=== PATIENT | female | born 1955 | race Caucasian/White ===

== ENCOUNTER 2019-01-28 21:52 | Inpatient (IN) | payer MEDICARE, MEDICAID ==
[~2019-01-28] VITALS: Ht 144.8 cm; Wt 66.7 kg
[2019-01-29] VITALS (24 sets, daily range): BP systolic 81–114; BP diastolic 49–69
[2019-01-29] MEDS: K, MAG and/or Phos replacement - Verify level? MC SCH ×2 (01:20→08:00)
[2019-01-29] MEDS ORDERED: potassium Cl 20 mEq SR tablet PO PRN ×2 (01:20)
[2019-01-29] MEDS ORDERED: acetaminophen 325mg tablet PO PRN ×2 (01:20)
[2019-01-29] MEDS ORDERED: morphine 4 MG/ML inj SYRINge IV PRN (01:20)
[2019-01-29] MEDS ORDERED: FENTANYL-0.9 % NACL/PF 100 ML IV PRN (01:20)
[2019-01-29] MEDS ORDERED: potassium CL 10mEq/100ml bag 100 ML IV PRN (01:20)
[2019-01-29] MEDS ORDERED: ipratropium/albuterol 3ml nebule NEB PRN (01:20)
[2019-01-29] MEDS ORDERED: morphine 2 MG/ML inj. syringe IV PRN (01:20)
[2019-01-29] MEDS ORDERED: normal saline 1000ml 1,000 ML IV SCH (01:20)
[2019-01-29] MEDS ORDERED: ondansetron/PF 4mg/2ml inj IV PRN (01:20)
[2019-01-29 01:31] LABS: ABG BASE EXCESS 3.3 mmol/L (-2.0-3.0); ABG HCO3 27.4 mmol/L (22.0-26.0); ABG OXYGEN SATURATION 98.4 % (95-98); ABG PCO2 (T) 38.3 mmHg (32.0-45.0); ABG PH (T) 7.469 (7.350-7.450); ABG PO2 (T) 108.3 mmHg (83-108); FCOHb 1.4 % (0.5-1.5); FMetHb 0.3 % (0.3-1.12); FO2Hb 96.7 % (94-100); MINUTE VOLUME 8 L/min; PATIENT TEMPERATURE 36.1; PEEP 5 cm H2O; RESPIRATORY RATE 16 b/min; RESPIRATORY RATE (OBSERVED) 16 b/min; TIDAL VOLUME 450 mL; TOTAL HEMOGLOBIN 14.5 G/dl (12.0-16.0)
[2019-01-29] MEDS ORDERED: LEVO75TA PO (03:01)
[2019-01-29] MEDS ORDERED: FURO40TA4 PO (03:05)
[2019-01-29] MEDS ORDERED: SPIR25TA5 PO (03:07)
[2019-01-29] MEDS ORDERED: CARV6.253 PO (03:08)
[2019-01-29] MEDS ORDERED: RAMI5CAP65 PO (03:09)
[2019-01-29] MEDS ORDERED: ALEN70TA60 PO (03:09)
[2019-01-29] MEDS ORDERED: ALBU18HF2 INH (03:10)
[2019-01-29] MEDS ORDERED: glucagon, human recombinant 1mg kit SUBCUT PRN (03:45)
[2019-01-29] MEDS ORDERED: dextrose 50%-water 50ml dispensing syringe IV PRN (03:45)
[2019-01-29] MEDS ORDERED: dextrose ORAL solution 15 GM/59 ML bottle PO PRN ×2 (03:45)
[2019-01-29] MEDS ORDERED: dextrose 50%-water 50ml dispensing syringe IV ONE (03:49)
--- NOTE | 2019-01-29 03:55 | NUR ---
0032: PATIENT ARRIVED TO UNIT VIA GURNEY ON VENT AND SEDATED ON PROPOFOL. NEUROLOGICALLY SEDATED. NOTABLES DURING INITIAL ASSESSMENT . pUPILS WERE SLIGHTLY UNEVEN BUT REACTIVE BRISKLY. RIGHT PUPIL 4 MM & BRISK LEFT 3 MM & BRISK. EXTREMELY STRONG SMELL OF URINE AND FECES, LOOSE STOOL UNDER PATIENT - BRICK RED/BROWN. # 18 PIV TO LEFT THUMB IS NOT PATENT. # 18 PIV LEFT WRIST IN USE FOR DIPRIVAN. # 18 PIV RIGHT WRIST SALINE LOCKED. WRIST REDDEND BUT FLUSHES AND HAS BR. 7.5 ETT 22 CM AT LIP. CXR WAS COMPLETED. RIGHT NGT TO LWS - GREEN BILIOUS OUT - SMALL AMT. BRUISES AND REDNESS AT VARIOUS PARTS OF BODY - NO OPEN AREAS. COCCYX REDDENED. LARGE BRUISE TO LEFT THORAX. ABRASION TO UNDER LIP AND MIDDLE OF BACK. BP BORDERLINE - MONITORING. CESAR LIVINGSTON NOTIFIED AND ON UNIT. 04:04 : HYPOTENSIVE 78/57 - LEG LIFT ABOVE HEART INCREASES THE SBP TO 90. PER ORDER- 1 LITER FLUID BOLUS GIVEN. BLOOD GLUCOSE 48 RIGHT FINGERSTICK, RE-CHECK ON LEFT HAND AND BG WAS 56. CALL TO CESAR LIVINGSTON. SOLDERING MACHINE SETTER TO GET ORDER FOR DEXTROSE. 1/2 AMP DEXTROSE GIVEN PER ORDER. BG F/U IS PENDING. MEDS FOUND IN PATIENT BAG - MED REC COMPETED AND SENT TO PHARMACY. Addendum: 01/29/19 at 0422 by Jose Sullivan RN 2 ATTEMPTS WERE MADE AT ACCESS/PIV - BOTH WERE UNSUCCESSFUL. CESAR LIVINGSTON NP AWARE
[2019-01-29] MEDS: dextrose 50%-water 50ml dispensing syringe IV PRN (04:30)
--- NOTE | 2019-01-29 04:31 | NUR ---
F/U BG WAS 60. A SECOND 1/2 AMP D50% GIVEN
--- NOTE | 2019-01-29 05:13 | NUR ---
F/U GLUCOSE WAS 128
[2019-01-29 05:28] LABS: BASOPHILS % (AUTO) 0.1 % (0-1); EOSINOPHILS % (AUTO) 0 % (0-6); HEMATOCRIT 47.2 % (35.0-45.0); HEMOGLOBIN 14.6 g/dl (12.0-16.0); LYMPHOCYTES # (AUTO) 0.3 X10'3 (1.1-4.8); LYMPHOCYTES % (AUTO) 1.4 % (21-51); MEAN CORPUSCULAR HEMOGLOBIN 23.3 PG (27.0-31.0); MEAN CORPUSCULAR VOLUME 75.4 FL (78-98); MEAN PLATELET VOLUME 8.9 FL (7.4-10.4); MONOCYTES # (AUTO) 0.8 X10'3 (0-0.9); MONOCYTES % (AUTO) 3.2 % (2-12); NEUTROPHILS # (AUTO) 23.5 X10'3 (1.8-7.7); NEUTROPHILS % (AUTO) 95.3 % (42-75); PLATELET COUNT 138 X10'3 (140-440); RED BLOOD COUNT 6.27 X10'6 (4.20-5.60); RED CELL DISTRIBUTION WIDTH 18.3 % (11.5-14.5); WHITE BLOOD COUNT 24.7 X10'3 (4.5-11.0)
[2019-01-29 05:49] LABS: PARTIAL THROMBOPLASTIN TIME 38 SECONDS (22-32)
[2019-01-29] MEDS ORDERED: propofol 1000mg/100ml bottle 100 ML IV ONE (06:07)
[2019-01-29] MEDS: normal saline 1000ml 1,000 ML IV SCH ×3 (06:25→19:47)
--- NOTE | 2019-01-29 06:30 | NUR ---
Patient in room CICU 2008. I have received report from Jose MILLS and had the opportunity to ask questions and assume patient care. Patient laying in bed with eyes closed, on vent fio2 30% peep of 5, cabrera to gravity, vital signs stable will continue to monitor
--- NOTE | 2019-01-29 06:30 | NUR ---
Patient in room CICU 2008. I have received report from Jose MILLS and had the opportunity to ask questions and assume patient care. patient laying in bed with eyes closed, on ventilator
--- NOTE | 2019-01-29 06:30 | NUR ---
Patient in room CICU 2008. I have received report from Jose MILLS and had the opportunity to ask questions and assume patient care. Patient laying in bed with eyes closed, cabrera to gravity, on ventilator fio2 30%, vital signs stable will continue to monitor
[2019-01-29 06:41] LABS: ALANINE AMINOTRANSFERASE 730 U/L (12-78); ALBUMIN 2.2 G/DL (3.4-5.0); ALBUMIN/GLOBULIN RATIO 0.8 (1.1-1.5); ALKALINE PHOSPHATASE 109 IU/L (46-116); ANION GAP 14 (8-16); BILIRUBIN,TOTAL 2.1 MG/DL (0.1-1.0); BLOOD UREA NITROGEN 56 MG/DL (7-18); BUN/CREATININE RATIO 47.9 (6.6-38.0); CALCIUM 6.8 MG/DL (8.5-10.1); CHLORIDE 110 MMOL/L (99-107); CREATININE 1.17 MG/DL (0.40-0.90); GLUCOSE 138 MG/DL (70-104); PHOSPHORUS 2.8 MG/DL (2.3-4.5); SODIUM 149 MMOL/L (135-145); TOTAL CARBON DIOXIDE 25.1 MMOL/L (24-32); TOTAL PROTEIN 4.9 G/DL (6.4-8.2); eGFR 46 ML/MIN
[2019-01-29 06:42] LABS: ASPARTATE AMINO TRANSFERASE 1220 U/L (10-37); POTASSIUM 3.7 MMOL/L (3.5-5.1)
[2019-01-29 06:56] LABS: ANISOCYTOSIS 2+; MICROCYTOSIS 1+; PLATELET ESTIMATE DECREASED; TOTAL CELLS COUNTED 100
[2019-01-29] MEDS ORDERED: calcium chloride 100 MG/1 ML inj IV ONE (07:25)
--- NOTE | 2019-01-29 07:40 | NUR ---
Called patients daughter Tata Washington [phone] in regards to update her on her mothers status and to obtain consent for a PICC line placement, she agreed verified authorization with Nigel MILLS
--- NOTE | 2019-01-29 07:43 | NUR ---
Dr Frias called, reviewed labs and vital signs with him, new orders: amylase, lipase, place a PICC line informed him that there is no family to give consent, MRCP and MRI abdomen also ordered
[2019-01-29 08:31] LABS: AMYLASE 23 U/L (25-115); LIPASE 69 U/L (73-393)
--- NOTE | 2019-01-29 08:40 | NUR ---
when turning patient for wound care, there was another large tary stool under the patient, Dr. Hernandes aware
[2019-01-29] MEDS ORDERED: sincalide inj 1.3 MCG in normal saline 50ml IV soln 50 ML IV ONE (10:30)
--- NOTE | 2019-01-29 10:57 | NUR ---
Initial: Pt admit with sepsis, liver failure, cholangitis, and suspected GIB and is intubated. To get HIDA per MD at critical care rounds. If prolonged intubation recommend nutrition support to meet nutrient needs while on vent, recommendations below. Pt with low Franck of 12, per physical assessment pt with abrasion to lip and back. LBM 7/10. No edema. Will continue to follow. Recommendations: 1) If prolonged intubation and to receive TF, recommend continuous Vital High Protein with goal rate of 65 mL/hr to provide: 1680 mL total volume/day, 1680 kcal, 137 g protein, and 1304 mL free water 2) If TF, additional water flush per MD 3) If TF, prealbumin q /; daily wts 4) Diet advancement as medically indicated to heart healthy s/p extubation Addendum: 01/29/19 at [address] Amended: Links added.
[2019-01-29] MEDS: NORepinephrine 8mg/ 250ml NS 250 ML IV SCH (11:10)
[2019-01-29] MEDS ORDERED: LEVO175T2 PO (11:28)
[2019-01-29] MEDS ORDERED: ASPI-1265 PO (11:29)
[2019-01-29] MEDS ORDERED: ATOR-2 PO (11:29)
[2019-01-29] MEDS ORDERED: FLUT1BLS3 PO (11:30)
[2019-01-29] MEDS ORDERED: LISI-600 PO (11:32)
--- NOTE | 2019-01-29 11:44 | NUR ---
PRESSURE ULCER EDUCATION: DEFINITION: A pressure ulcer is an area of skin that breaks down when you stay in one position too long. The constant pressure against the skin reduces the blood flow to that area and the affected tissue dies. CAUSES: "Being bedridden or in a wheelchair "Fragile skin "Having a chronic condition, such as diabetes or vascular disease "Inability to move certain parts of your body without assistance "Older age "Incontinence of urine or stool SYMPTOMS: "A reddened area that DOES NOT turn white when pressed on - this can be the beginning of a pressure ulcer "A blister, deep sore or a crater - these can be advanced pressure ulcers FIRST AID: "Relieve the pressure on this area "Keep the area clean and dry "Call your primary doctor if you see any of the above symptoms "DO NOT massage the area "DO NOT use a donut shaped or ring shaped pillow- these actually interfere with the blood flow and cause complications PREVENTION: "Check for pressure ulcers everyday "Change position at least every two hours to relieve pressure "Use items that help relieve pressure- pillows, sheepskin, foam padding, and powders. "Keep skin clean and dry "Eat healthy well balanced meals "Exercise daily IF YOU SEE ANY OF THESE SYMPTOMS WHILE IN THE HOSPITAL - TELL YOUR NURSE IMMEDIATELY. IF YOU SEE ANY OF THESE SYMPTOMS WHILE AT HOME OR HAVE ANY QUESTIONS OR CONCERNS ABOUT PRESSURE ULCERS - CALL YOUR PRIMARY DOCTOR IMMEDIATELY. Addendum: 01/29/19 at 1145 by Stephany Calvo RN Amended: Links added.
[2019-01-29] MEDS: piperacillin/tazo 4.5gm/100ml 100 ML IV SCH ×2 (12:15→19:47)
[2019-01-29] MEDS: ESOMEPRAZOLE 40 MG VIAL IV SCH (12:16)
[2019-01-29 12:33] LABS: CREATINE KINASE 4876 U/L (26-192)
--- NOTE | 2019-01-29 13:14 | NUR ---
Wound consult: Per [facility] notes pt with SDTI/DTI to the following: R heel, knee, elbow, L heel, hip, elbow, knee, and sacrum. Pt intubated and not receiving nutrition support at this time. Will continue to follow. Addendum: 01/29/19 at [address] Amended: Links added.
[2019-01-29] MEDS ORDERED: sincalide inj 1.3 MCG in normal saline 50ml IV soln 50 ML IV PRN (13:15)
--- NOTE | 2019-01-29 15:45 | NUR ---
Gilson carrillo RT accompanied me to Nuc Med for billiary scan, patient tolerated trip down and back, once we arrived at nuc med I was called by my charge nurse and stated that the test had been canceled.
--- NOTE | 2019-01-29 18:35 | NUR ---
Patient in room CICU 2008. I have received report from Delmi MILLS, and had the opportunity to ask questions and assume patient care.
--- NOTE | 2019-01-29 18:37 | NUR ---
Problems reprioritized. Patient report given, questions answered & plan of care reviewed with Beal MILLS.
[2019-01-29 18:44] LABS: BILIRUBIN,DIRECT 1.3 MG/DL (0-0.3); BILIRUBIN,TOTAL 1.8 MG/DL (0.1-1.0)
[2019-01-29] MEDS ORDERED: diatr meglu/diatrizoate 30ml oral sol.-(3 dose) bottle PO ONE (20:25)
[2019-01-29] MEDS ORDERED: diatrozoate meglu/diatrozoate sod (37% iodine) 120ML oral solution PO SCH (20:25)
--- NOTE | 2019-01-29 20:30 | NUR ---
Dr. Mae came by to assess PT. He ordered an Echocardiogram for the AM. He also asked if a CT of ABD and chest had been ordered, I informed him that a CT of ABD and Pelvis was ordered, He wanted to add on a CT of the Chest. He also asked if the CT was ordered with contrast, I informed him that there was not contrast ordered so I received a verbal order from him for oral contrast as well as IV contrast if CRE decreased closer to 1.0, CRE is 1.7 as of AM labs. Orders placed. Will continue to monitor.
[2019-01-29 22:16] LABS: OXYGEN SATURATION (MIXED VEN) 74.4 % (60-80); PO2 MIXED VENOUS (TEMP COR) 42.3 mmHg (35-46)
[2019-01-29] MEDS ORDERED: diatr meglu/diatrizoate 30ml oral sol.-(3 dose) bottle PO PRN (22:30)
--- NOTE | 2019-01-29 23:00 | NUR ---
PT resting with no s/s of distress noted at this time. VSS. Bed is locked and low. Bilat soft wrist restraints in place and secure. Will continue to monitor.
[2019-01-30] VITALS (24 sets, daily range): BP systolic 99–142; BP diastolic 50–77
[2019-01-30] MEDS: mineral oil/petrolatum ophthal oint EACHEYE SCH ×4 (02:24→20:15)
[2019-01-30] MEDS: normal saline 1000ml 1,000 ML IV SCH (02:25)
[2019-01-30 03:30] LABS: BASOPHILS % (AUTO) 0.2 % (0-1); EOSINOPHILS % (AUTO) 0 % (0-6); HEMATOCRIT 43.3 % (35.0-45.0); HEMOGLOBIN 13.3 g/dl (12.0-16.0); LYMPHOCYTES # (AUTO) 0.3 X10'3 (1.1-4.8); LYMPHOCYTES % (AUTO) 2.1 % (21-51); MEAN CORPUSCULAR HGB CONC 30.7 g/dL (33.0-36.5); MEAN CORPUSCULAR VOLUME 74.9 FL (78-98); MONOCYTES # (AUTO) 0.6 X10'3 (0-0.9); MONOCYTES % (AUTO) 3.8 % (2-12); NEUTROPHILS # (AUTO) 15.5 X10'3 (1.8-7.7); NEUTROPHILS % (AUTO) 93.9 % (42-75); PLATELET COUNT 106 X10'3 (140-440); RED BLOOD COUNT 5.78 X10'6 (4.20-5.60); RED CELL DISTRIBUTION WIDTH 18.6 % (11.5-14.5); WHITE BLOOD COUNT 16.5 X10'3 (4.5-11.0)
[2019-01-30 03:41] LABS: ALANINE AMINOTRANSFERASE 646 U/L (12-78); ALBUMIN 1.9 G/DL (3.4-5.0); ALBUMIN/GLOBULIN RATIO 0.8 (1.1-1.5); ALKALINE PHOSPHATASE 101 IU/L (46-116); ANION GAP 5 (8-16); ASPARTATE AMINO TRANSFERASE 655 U/L (10-37); BILIRUBIN,TOTAL 1.8 MG/DL (0.1-1.0); BLOOD UREA NITROGEN 39 MG/DL (7-18); BUN/CREATININE RATIO 42.4 (6.6-38.0); CALCIUM 6.9 MG/DL (8.5-10.1); CHLORIDE 117 MMOL/L (99-107); CREATININE 0.92 MG/DL (0.40-0.90); GLUCOSE 94 MG/DL (70-104); MAGNESIUM 1.8 MG/DL (1.5-2.4); PHOSPHORUS 1.8 MG/DL (2.3-4.5); POTASSIUM 3.1 MMOL/L (3.5-5.1); SODIUM 152 MMOL/L (135-145); TOTAL CARBON DIOXIDE 30.2 MMOL/L (24-32); TOTAL PROTEIN 4.4 G/DL (6.4-8.2); eGFR 61 ML/MIN
--- NOTE | 2019-01-30 04:30 | NUR ---
RAJWINDER Genao notifed d/t NA being 152 and PT receiving NS@1590ml/hr. Order received to change IVF to D5 1/5NS and keep at same rate. Also informed of Phos of 1.8, no new orders received at this time. Will continue to monitor.
[2019-01-30] MEDS: potassium Cl 20mEq/100mL bag 100 ML IV PRN ×2 (04:53→07:23)
[2019-01-30] MEDS: dextrose 5%-1/2 normal saline 1,000 ML IV SCH ×3 (04:53→20:15)
[2019-01-30] MEDS ORDERED: diatr meglu/diatrizoate 30ml oral sol.-(3 dose) bottle PO ONE ×2 (06:00→07:00)
--- NOTE | 2019-01-30 06:47 | NUR ---
Problems reprioritized. Patient report given, questions answered & plan of care reviewed with Brando MILLS.
[2019-01-30] MEDS: K, MAG and/or Phos replacement - Verify level? MC SCH (08:00)
[2019-01-30 08:33] LABS: ABG BASE EXCESS -0.1 mmol/L (-2.0-3.0); ABG HCO3 23.9 mmol/L (22.0-26.0); ABG PH (T) 7.429 (7.350-7.450); ALLEN'S TEST Positive; FCOHb 1.7 % (0.5-1.5); FMetHb 0.3 % (0.3-1.12); FO2Hb 91.1 % (94-100); MINUTE VOLUME 7 L/min; PATIENT TEMPERATURE 37.1; PEEP 5 cm H2O; RESPIRATORY RATE 16 b/min; RESPIRATORY RATE (OBSERVED) 16 b/min; TIDAL VOLUME 400 mL
[2019-01-30] MEDS: ESOMEPRAZOLE 40 MG VIAL IV SCH (08:41)
[2019-01-30] MEDS: piperacillin/tazo 4.5gm/100ml 100 ML IV SCH ×2 (08:41→16:49)
--- NOTE | 2019-01-30 09:42 | NUR ---
Clarified CT orders with IV and oral Contrast with Dr Hernandes. CT paged
[2019-01-30] MEDS ORDERED: iohexol 300mg/ml 100ml inj. ONE (12:19)
[2019-01-30] MEDS: pantoprazole 40MG/NS 100ML BAG 100 ML IV SCH ×4 (13:28→23:11)
[2019-01-30 14:08] LABS: CREATINE KINASE 915 U/L (26-192)
[2019-01-30 14:49] LABS: OCCULT BLOOD STOOL POSITIVE (Neg)
--- NOTE | 2019-01-30 15:30 | NUR ---
Positive occult stool reported to Dr Hernandes; no new orders
--- NOTE | 2019-01-30 18:41 | NUR ---
Patient in room CICU 2008. I have received report from Brando MILLS, and had the opportunity to ask questions and assume patient care.
--- NOTE | 2019-01-30 19:35 | NUR ---
PT is intubated and mechanically vented, tolerating vent settings well, O2 sat >95%. VSS. Sedation is off, PT tolerating well. PT does respond to painful stimuli, facial grimace when repositioned. PT is not following commands but did open her eyes to sternal rub. Pupils are equal and reactive to light. Smalls in place draining to gravity. Rectal bag placed during previous shift, CDI, no stool noted in bag at this time. Bed is locked and low. Bilat soft wrist restraints in place and secure. Will continue to monitor.
[2019-01-30] MEDS: lactobacillus rhamnosus 10,000 MMU CELLS/CAPSULE PO SCH (20:00)
[2019-01-31] VITALS (24 sets, daily range): BP systolic 104–134; BP diastolic 58–77
[2019-01-31] MEDS: piperacillin/tazo 4.5gm/100ml 100 ML IV SCH ×4 (00:13→23:15)
[2019-01-31 02:35] LABS: BASOPHILS % (AUTO) 0.3 % (0-1); EOSINOPHILS % (AUTO) 0.2 % (0-6); HEMATOCRIT 39.3 % (35.0-45.0); HEMOGLOBIN 12.2 g/dl (12.0-16.0); LYMPHOCYTES # (AUTO) 0.4 X10'3 (1.1-4.8); LYMPHOCYTES % (AUTO) 3.2 % (21-51); MEAN CORPUSCULAR HEMOGLOBIN 23.1 PG (27.0-31.0); MEAN CORPUSCULAR VOLUME 74.6 FL (78-98); MEAN PLATELET VOLUME 8.6 FL (7.4-10.4); MONOCYTES # (AUTO) 0.5 X10'3 (0-0.9); MONOCYTES % (AUTO) 3.9 % (2-12); NEUTROPHILS # (AUTO) 11.8 X10'3 (1.8-7.7); NEUTROPHILS % (AUTO) 92.4 % (42-75); PLATELET COUNT 72 X10'3 (140-440); RED BLOOD COUNT 5.27 X10'6 (4.20-5.60); RED CELL DISTRIBUTION WIDTH 19.2 % (11.5-14.5); WHITE BLOOD COUNT 12.7 X10'3 (4.5-11.0)
[2019-01-31 02:52] LABS: ALANINE AMINOTRANSFERASE 539 U/L (12-78); ALBUMIN 1.7 G/DL (3.4-5.0); ALBUMIN/GLOBULIN RATIO 0.6 (1.1-1.5); ALKALINE PHOSPHATASE 91 IU/L (46-116); ANION GAP 4 (8-16); ASPARTATE AMINO TRANSFERASE 392 U/L (10-37); BILIRUBIN,TOTAL 1.1 MG/DL (0.1-1.0); BLOOD UREA NITROGEN 22 MG/DL (7-18); BUN/CREATININE RATIO 28.9 (6.6-38.0); CALCIUM 6.7 MG/DL (8.5-10.1); CHLORIDE 117 MMOL/L (99-107); CREATININE 0.76 MG/DL (0.40-0.90); GLUCOSE 149 MG/DL (70-104); MAGNESIUM 1.7 MG/DL (1.5-2.4); POTASSIUM 3.5 MMOL/L (3.5-5.1); SODIUM 150 MMOL/L (135-145); TOTAL CARBON DIOXIDE 29.2 MMOL/L (24-32); TOTAL PROTEIN 4.5 G/DL (6.4-8.2); eGFR 76 ML/MIN
[2019-01-31 02:53] LABS: PHOSPHORUS 1.1 MG/DL (2.3-4.5)
[2019-01-31] MEDS: mineral oil/petrolatum ophthal oint EACHEYE SCH ×4 (03:07→20:52)
[2019-01-31] MEDS: dextrose 5%-1/2 normal saline 1,000 ML IV SCH ×4 (03:07→23:14)
[2019-01-31 03:40] LABS: ABG BASE EXCESS 2.3 mmol/L (-2.0-3.0); ABG HCO3 27.7 mmol/L (22.0-26.0); ABG OXYGEN SATURATION 95.9 % (95-98); ABG PCO2 (T) 45.6 mmHg (32.0-45.0); ALLEN'S TEST Positive; FCOHb 1.4 % (0.5-1.5); FMetHb 0.1 % (0.3-1.12); FO2Hb 94.5 % (94-100); MINUTE VOLUME 7 L/min; PATIENT TEMPERATURE 36.7; PEEP 5 cm H2O; RESPIRATORY RATE 16 b/min; RESPIRATORY RATE (OBSERVED) 16 b/min; TIDAL VOLUME 400 mL; TOTAL HEMOGLOBIN 13.1 G/dl (12.0-16.0)
[2019-01-31] MEDS: pantoprazole 40MG/NS 100ML BAG 100 ML IV SCH ×4 (04:36→20:52)
--- NOTE | 2019-01-31 06:17 | NUR ---
Problems reprioritized. Patient report given, questions answered & plan of care reviewed with Brando MILLS.
[2019-01-31] MEDS: lactobacillus rhamnosus 10,000 MMU CELLS/CAPSULE PO SCH ×2 (07:12→20:00)
[2019-01-31] MEDS: K, MAG and/or Phos replacement - Verify level? MC SCH (08:00)
[2019-01-31] MEDS: NORepinephrine 8mg/ 250ml NS 250 ML IV SCH (11:10)
[2019-01-31] MEDS ORDERED: sodium phosphate inj. 30 MMOL in dextrose 5%-water 250 ML IV ONE (16:45)
[2019-01-31] MEDS ORDERED: LIDOcaine Viscous 15ml cup ONE (17:19)
[2019-01-31] MEDS ORDERED: MIDAZolam 5mg/5ml vial ONE (17:19)
[2019-01-31] MEDS ORDERED: fentaNYL/PF 50MCG/1 ML 2ML syringe ONE (17:19)
--- NOTE | 2019-01-31 18:30 | NUR ---
Patient in room CICU 2008. I have received report from Brando MILLS and had the opportunity to ask questions and assume patient care.
[2019-01-31] MEDS: vancomycin/NS 1 GM ADD-VANTAGE 250 ML IV SCH (23:15)
[2019-02-01] VITALS (24 sets, daily range): BP systolic 103–156; BP diastolic 65–82
[2019-02-01] MEDS: pantoprazole 40MG/NS 100ML BAG 100 ML IV SCH ×5 (02:12→19:21)
[2019-02-01] MEDS: mineral oil/petrolatum ophthal oint EACHEYE SCH ×4 (02:13→20:52)
[2019-02-01 03:13] LABS: BASOPHILS % (AUTO) 0.1 % (0-1); EOSINOPHILS # (AUTO) 0.1 X10'3 (0-0.9); EOSINOPHILS % (AUTO) 1.2 % (0-6); HEMATOCRIT 37.9 % (35.0-45.0); HEMOGLOBIN 11.7 g/dl (12.0-16.0); LYMPHOCYTES # (AUTO) 0.7 X10'3 (1.1-4.8); LYMPHOCYTES % (AUTO) 6.2 % (21-51); MEAN CORPUSCULAR HEMOGLOBIN 23.1 PG (27.0-31.0); MEAN CORPUSCULAR HGB CONC 30.8 g/dL (33.0-36.5); MEAN PLATELET VOLUME 8.6 FL (7.4-10.4); MONOCYTES # (AUTO) 0.6 X10'3 (0-0.9); MONOCYTES % (AUTO) 5.6 % (2-12); NEUTROPHILS % (AUTO) 86.9 % (42-75); PLATELET COUNT 55 X10'3 (140-440); RED BLOOD COUNT 5.05 X10'6 (4.20-5.60); RED CELL DISTRIBUTION WIDTH 19.2 % (11.5-14.5); WHITE BLOOD COUNT 11.5 X10'3 (4.5-11.0)
[2019-02-01 03:20] LABS: ALANINE AMINOTRANSFERASE 386 U/L (12-78); ALBUMIN 1.5 G/DL (3.4-5.0); ALBUMIN/GLOBULIN RATIO 0.5 (1.1-1.5); ALKALINE PHOSPHATASE 89 IU/L (46-116); ANION GAP 4 (8-16); ASPARTATE AMINO TRANSFERASE 233 U/L (10-37); BLOOD UREA NITROGEN 13 MG/DL (7-18); CALCIUM 6.5 MG/DL (8.5-10.1); CHLORIDE 114 MMOL/L (99-107); CREATININE 0.62 MG/DL (0.40-0.90); GLUCOSE 109 MG/DL (70-104); MAGNESIUM 1.5 MG/DL (1.5-2.4); PHOSPHORUS 2.3 MG/DL (2.3-4.5); SODIUM 147 MMOL/L (135-145); TOTAL PROTEIN 4.4 G/DL (6.4-8.2); eGFR > 90 ML/MIN
[2019-02-01 04:20] LABS: ABG BASE EXCESS 1.5 mmol/L (-2.0-3.0); ABG HCO3 26.3 mmol/L (22.0-26.0); ABG OXYGEN SATURATION 95.9 % (95-98); ABG PCO2 (T) 42.2 mmHg (32.0-45.0); ABG PH (T) 7.413 (7.350-7.450); ABG PO2 (T) 77.4 mmHg (83-108); ALLEN'S TEST Positive; FCOHb 1.7 % (0.5-1.5); FMetHb 0.1 % (0.3-1.12); FO2Hb 94.2 % (94-100); MINUTE VOLUME 7 L/min; PEEP 5 cm H2O; RESPIRATORY RATE 16 b/min; RESPIRATORY RATE (OBSERVED) 16 b/min; TIDAL VOLUME 400 mL
[2019-02-01] MEDS: potassium Cl 20mEq/100mL bag 100 ML IV PRN ×4 (04:30→08:06)
[2019-02-01] MEDS: K, MAG and/or Phos replacement - Verify level? MC SCH (06:48)
[2019-02-01] MEDS: piperacillin/tazo 4.5gm/100ml 100 ML IV SCH ×2 (08:04→16:32)
[2019-02-01] MEDS: lactobacillus rhamnosus 10,000 MMU CELLS/CAPSULE PO SCH ×2 (08:05→20:00)
[2019-02-01] MEDS: levoTHYROXINE 175mcg tablet PO SCH (08:06)
[2019-02-01] MEDS: atorvastatin 20mg tablet PO SCH (08:06)
[2019-02-01] MEDS: dextrose 50%-water 50ml dispensing syringe IV PRN ×3 (08:36→20:52)
[2019-02-01] MEDS: dextrose 5%-1/2 normal saline 1,000 ML IV SCH ×3 (09:45→16:25)
--- NOTE | 2019-02-01 10:54 | NUR ---
Reassessment: Pt remains intubated not receiving nutrition support at this time. Pt now day 3 with no nutrition although receiving some kcals via routine IV D5-1/2NS and PRN IV dextrose. Pt has been started on Vancomycin d/t sputum growing MRSA per MD notes. LBM 02/01. Will continue to follow. Reassessment: Pt still NPO, pending upper endoscopy today. Wound consult: Per [facility] notes pt with SDTI/DTI to the following: R heel, knee, elbow, L heel, hip, elbow, knee, and sacrum. Pt intubated and not receiving nutrition support at this time. Will continue to follow. Initial: Pt admit with sepsis, liver failure, cholangitis, and suspected GIB and is intubated. If prolonged intubation recommend nutrition support to meet nutrient needs while on vent, recommendations below. Pt with low Franck of 12, per physical assessment pt with abrasion to lip and back. LBM 01/29. No edema. Will continue to follow. Recommendations: 1) If prolonged intubation and to receive TF, recommend continuous Vital High Protein with goal rate of 65 mL/hr to provide: 1680 mL total volume/day, 1680 kcal, 137 g protein, and 1304 mL free water 2) If TF, additional water flush per MD 3) If TF, prealbumin q /; daily wts 4) Diet advancement as medically indicated to heart healthy s/p extubation Addendum: 02/01/19 at [address] Amended: Links added.
[2019-02-01 12:03] LABS: PHOSPHORUS 1.7 MG/DL (2.3-4.5); POTASSIUM 4.2 MMOL/L (3.5-5.1)
[2019-02-01] MEDS: vancomycin/NS 1 GM ADD-VANTAGE 250 ML IV SCH (12:49)
[2019-02-01] MEDS ORDERED: potassium phosphate inj 30 MMOL in normal saline 500ml IV soln 490 ML IV ONE (17:00)
[2019-02-01] MEDS: midazolam 100mg in NS 100ml 100 ML IV PRN (17:35)
[2019-02-02] VITALS (24 sets, daily range): BP systolic 114–162; BP diastolic 64–84
[2019-02-02] MEDS: piperacillin/tazo 4.5gm/100ml 100 ML IV SCH ×3 (00:26→15:46)
[2019-02-02] MEDS: pantoprazole 40MG/NS 100ML BAG 100 ML IV SCH ×5 (00:26→21:30)
[2019-02-02] MEDS: vancomycin/NS 1 GM ADD-VANTAGE 250 ML IV SCH ×2 (00:26→12:52)
[2019-02-02] MEDS: mineral oil/petrolatum ophthal oint EACHEYE SCH ×4 (02:00→20:22)
[2019-02-02 02:43] LABS: ALANINE AMINOTRANSFERASE 313 U/L (12-78); ALBUMIN 1.6 G/DL (3.4-5.0); ALBUMIN/GLOBULIN RATIO 0.5 (1.1-1.5); ALKALINE PHOSPHATASE 94 IU/L (46-116); ANION GAP 4 (8-16); ASPARTATE AMINO TRANSFERASE 160 U/L (10-37); BILIRUBIN,TOTAL 1.2 MG/DL (0.1-1.0); BLOOD UREA NITROGEN 8 MG/DL (7-18); BUN/CREATININE RATIO 13.8 (6.6-38.0); CALCIUM 6.9 MG/DL (8.5-10.1); CHLORIDE 114 MMOL/L (99-107); CREATININE 0.58 MG/DL (0.40-0.90); GLUCOSE 78 MG/DL (70-104); MAGNESIUM 1.3 MG/DL (1.5-2.4); PHOSPHORUS 2.7 MG/DL (2.3-4.5); POTASSIUM 3.9 MMOL/L (3.5-5.1); SODIUM 146 MMOL/L (135-145); TOTAL CARBON DIOXIDE 27.6 MMOL/L (24-32); TOTAL PROTEIN 4.6 G/DL (6.4-8.2); eGFR > 90 ML/MIN
[2019-02-02 02:44] LABS: BASOPHILS % (AUTO) 0 % (0-1); EOSINOPHILS # (AUTO) 0.1 X10'3 (0-0.9); EOSINOPHILS % (AUTO) 0.7 % (0-6); HEMATOCRIT 38.1 % (35.0-45.0); LYMPHOCYTES # (AUTO) 0.8 X10'3 (1.1-4.8); LYMPHOCYTES % (AUTO) 6.7 % (21-51); MEAN CORPUSCULAR HEMOGLOBIN 23.4 PG (27.0-31.0); MEAN CORPUSCULAR HGB CONC 31.7 g/dL (33.0-36.5); MEAN PLATELET VOLUME 8.6 FL (7.4-10.4); MONOCYTES # (AUTO) 0.7 X10'3 (0-0.9); MONOCYTES % (AUTO) 5.9 % (2-12); NEUTROPHILS # (AUTO) 10.5 X10'3 (1.8-7.7); NEUTROPHILS % (AUTO) 86.7 % (42-75); PLATELET COUNT 60 X10'3 (140-440); RED BLOOD COUNT 5.14 X10'6 (4.20-5.60); RED CELL DISTRIBUTION WIDTH 19.2 % (11.5-14.5); WHITE BLOOD COUNT 12.1 X10'3 (4.5-11.0)
[2019-02-02] MEDS: dextrose 5%-1/2 normal saline 1,000 ML IV SCH ×4 (03:27→20:24)
[2019-02-02] MEDS: dextrose 50%-water 50ml dispensing syringe IV PRN (03:27)
[2019-02-02 03:50] LABS: ABG BASE EXCESS 0.8 mmol/L (-2.0-3.0); ABG HCO3 25.7 mmol/L (22.0-26.0); ABG OXYGEN SATURATION 94.8 % (95-98); ABG PCO2 (T) 40.8 mmHg (32.0-45.0); ABG PH (T) 7.414 (7.350-7.450); ABG PO2 (T) 69.9 mmHg (83-108); ALLEN'S TEST Positive; FCOHb 1.6 % (0.5-1.5); FMetHb 0.2 % (0.3-1.12); FO2Hb 93.1 % (94-100); MINUTE VOLUME 7 L/min; PATIENT TEMPERATURE 36.2; PEEP 5 cm H2O; RESPIRATORY RATE 16 b/min; RESPIRATORY RATE (OBSERVED) 16 b/min; TIDAL VOLUME 400 mL; TOTAL HEMOGLOBIN 12.5 G/dl (12.0-16.0)
--- NOTE | 2019-02-02 06:30 | NUR ---
Problems reprioritized. Patient report given, questions answered & plan of care reviewed with
[2019-02-02 07:58] LABS: ANISOCYTOSIS 2+; HYPOCHROMASIA 1+; MICROCYTOSIS 1+; PLATELET ESTIMATE DECREASED; POLYCHROMASIA 1+; SCHISTOCYTES FEW
[2019-02-02] MEDS: levoTHYROXINE 175mcg tablet PO SCH (08:28)
[2019-02-02] MEDS: lactobacillus rhamnosus 10,000 MMU CELLS/CAPSULE PO SCH ×2 (08:28→20:22)
[2019-02-02] MEDS: atorvastatin 20mg tablet PO SCH (08:28)
[2019-02-02] MEDS: K, MAG and/or Phos replacement - Verify level? MC SCH (08:29)
[2019-02-02] MEDS ORDERED: magnesium 2GM in 50ml NS 50 ML IV ONE ×2 (08:30→15:45)
[2019-02-02] MEDS ORDERED: VANCOMYCIN LEVEL IV NR (11:30)
--- NOTE | 2019-02-02 12:39 | NUR ---
TF Consult: NGTF to start today per MD. EGD showed gastritis and pt not OK to extubated today; currently euvolemic though +3L yesterday per MD note. Recs below for intubation needs. Will monitor for TF tolerance and signs of refeeding given 4 days no nutrition. Reassessment: Pt remains intubated not receiving nutrition support at this time. Pt now day 3 with no nutrition although receiving some kcals via routine IV D5-1/2NS and PRN IV dextrose. Pt has been started on Vancomycin d/t sputum growing MRSA per MD notes. LBM 02/01. Will continue to follow. Recommendations: 1) NGTF using Vital High Protein at 65 mL/hr goal; to provide: 1680 mL total volume/day, 1680 kcal, 137 g protein, and 1304 mL free water 2) water flush 100ml Q6; adjust per machine chocolate molder recs 3) prealbumin q M/; daily wts 4) monitor for TF tolerance 5) Diet advancement as medically indicated to heart healthy s/p extubation Addendum: 02/02/19 at [address] Amended: Links added.
--- NOTE | 2019-02-02 12:56 | NUR ---
Pt. on spontaneous since this morning maintaining o2 sat and tidal volumes. RR high 20s. Per Dr. Palma continue on cpap, increase fio2 to 35% and start tube feedings. Vancomycin trough 15.7, per pharmacy this level is therapeutic and 12pm dose should be administered. Dose given
[2019-02-02] MEDS: midazolam 100mg in NS 100ml 100 ML IV PRN (15:11)
[2019-02-02] MEDS ORDERED: potassium Cl 20 mEq/100mL bag IV ONE (17:55)
--- NOTE | 2019-02-02 18:40 | NUR ---
Patient in room CICU 2008. I have received report from Sangita MILLS and had the opportunity to ask questions and assume patient care. Patient intubated and lightly sedated. Saturating at 97% on 35% FIO2 on CPAP mode, breathing at 17 breaths/min. Patient opens eyes to tactile stimuli, follows commands. HR in low 60s in sinus rhythm. Will continue to monitor patient closely.
[2019-02-03] VITALS (25 sets, daily range): BP systolic 103–164; BP diastolic 58–86
[2019-02-03] MEDS: piperacillin/tazo 4.5gm/100ml 100 ML IV SCH ×4 (00:47→23:41)
[2019-02-03] MEDS: vancomycin/NS 1 GM ADD-VANTAGE 250 ML IV SCH ×3 (00:47→23:41)
[2019-02-03] MEDS: pantoprazole 40MG/NS 100ML BAG 100 ML IV SCH ×3 (02:51→07:41)
[2019-02-03] MEDS: mineral oil/petrolatum ophthal oint EACHEYE SCH ×4 (02:53→21:13)
[2019-02-03 03:56] LABS: ABG BASE EXCESS -0.4 mmol/L (-2.0-3.0); ABG HCO3 26.7 mmol/L (22.0-26.0); ABG OXYGEN SATURATION 93.3 % (95-98); ABG PCO2 (T) 52.6 mmHg (32.0-45.0); ABG PH (T) 7.321 (7.350-7.450); ABG PO2 (T) 69.1 mmHg (83-108); ALLEN'S TEST Positive; FCOHb 1.9 % (0.5-1.5); FMetHb 0.2 % (0.3-1.12); FO2Hb 91.3 % (94-100); MINUTE VOLUME 5 L/min; PATIENT TEMPERATURE 36.5; PEEP 5 cm H2O; RESPIRATORY RATE (OBSERVED) 15 b/min; TOTAL HEMOGLOBIN 13.8 G/dl (12.0-16.0)
[2019-02-03 04:00] LABS: ALANINE AMINOTRANSFERASE 221 U/L (12-78); ALBUMIN 1.4 G/DL (3.4-5.0); ALBUMIN/GLOBULIN RATIO 0.5 (1.1-1.5); ALKALINE PHOSPHATASE 91 IU/L (46-116); ANION GAP 4 (8-16); ASPARTATE AMINO TRANSFERASE 90 U/L (10-37); BILIRUBIN,TOTAL 0.8 MG/DL (0.1-1.0); BLOOD UREA NITROGEN 5 MG/DL (7-18); BUN/CREATININE RATIO 10.4 (6.6-38.0); CALCIUM 7.4 MG/DL (8.5-10.1); CHLORIDE 110 MMOL/L (99-107); CREATININE 0.48 MG/DL (0.40-0.90); GLUCOSE 95 MG/DL (70-104); MAGNESIUM 1.5 MG/DL (1.5-2.4); PHOSPHORUS 2.3 MG/DL (2.3-4.5); POTASSIUM 3.4 MMOL/L (3.5-5.1); PREALBUMIN 7.5 MG/DL (19-36); SODIUM 142 MMOL/L (135-145); TOTAL CARBON DIOXIDE 28.2 MMOL/L (24-32); TOTAL PROTEIN 4.5 G/DL (6.4-8.2); eGFR > 90 ML/MIN
[2019-02-03] MEDS: dextrose 5%-1/2 normal saline 1,000 ML IV SCH ×4 (05:04→21:13)
[2019-02-03] MEDS: potassium CL 10mEq/100ml bag 100 ML IV PRN (05:58)
[2019-02-03 06:09] LABS: BASOPHILS % (AUTO) 0.2 % (0-1); EOSINOPHILS # (AUTO) 0.2 X10'3 (0-0.9); EOSINOPHILS % (AUTO) 1.6 % (0-6); HEMATOCRIT 40.7 % (35.0-45.0); HEMOGLOBIN 12.7 g/dl (12.0-16.0); LYMPHOCYTES # (AUTO) 0.8 X10'3 (1.1-4.8); LYMPHOCYTES % (AUTO) 6.9 % (21-51); MEAN CORPUSCULAR HEMOGLOBIN 23.2 PG (27.0-31.0); MEAN CORPUSCULAR HGB CONC 31.2 g/dL (33.0-36.5); MEAN CORPUSCULAR VOLUME 74.4 FL (78-98); MEAN PLATELET VOLUME 8.7 FL (7.4-10.4); MONOCYTES # (AUTO) 0.6 X10'3 (0-0.9); MONOCYTES % (AUTO) 5.6 % (2-12); NEUTROPHILS # (AUTO) 9.9 X10'3 (1.8-7.7); NEUTROPHILS % (AUTO) 85.7 % (42-75); PLATELET COUNT 66 X10'3 (140-440); RED BLOOD COUNT 5.48 X10'6 (4.20-5.60); RED CELL DISTRIBUTION WIDTH 19.8 % (11.5-14.5); WHITE BLOOD COUNT 11.6 X10'3 (4.5-11.0)
--- NOTE | 2019-02-03 06:24 | NUR ---
Problems reprioritized. Patient report given, questions answered & plan of care reviewed with Delmi MILLS.
--- NOTE | 2019-02-03 06:40 | NUR ---
During my physial assessment, found patient to have cold to the touch hands and feet, finger tips were blue as well, however toes were not, notified my Charge nurse Delmi who also came and assessed her, stated to place warm blankets on extremities also made charge nurse aware of mottling around thighs as well. Will continue to monitor
--- NOTE | 2019-02-03 06:53 | NUR ---
sedation off to see if patient is ready to extubate
--- NOTE | 2019-02-03 06:53 | NUR ---
Patient in room CICU 2008. I have received report from Idalia MILLS and had the opportunity to ask questions and assume patient care. Patient laying in bed with eyes closed on venitlator setting of cpap, peep of 5 pessure support of 15, cabrera to gravity, rectal tube to gravity. vital signs stable will continue to monitor
[2019-02-03 07:31] LABS: ANISOCYTOSIS 2+; MICROCYTOSIS 1+; PLATELET ESTIMATE DECREASED
[2019-02-03] MEDS: atorvastatin 20mg tablet PO SCH (07:41)
[2019-02-03] MEDS: lactobacillus rhamnosus 10,000 MMU CELLS/CAPSULE PO SCH (07:41)
[2019-02-03] MEDS: levoTHYROXINE 175mcg tablet PO SCH (07:41)
[2019-02-03] MEDS: K, MAG and/or Phos replacement - Verify level? MC SCH (07:42)
--- NOTE | 2019-02-03 09:39 | NUR ---
Unable to have a complete malnutrition risk screening due to the patient being intubated and sedated, answered questions best to my ability Addendum: 02/03/19 at 0939 by Delmi Murray RN Amended: Links added.
[2019-02-03] MEDS ORDERED: acetaminophen 325mg tablet NG PRN ×2 (11:37→11:40)
[2019-02-03] MEDS ORDERED: diatr meglu/diatrizoate 30ml oral sol.-(3 dose) bottle NG PRN (11:44)
[2019-02-03] MEDS ORDERED: dextrose ORAL solution 15 GM/59 ML bottle NG PRN ×2 (11:44)
[2019-02-03] MEDS: ESOMEPRAZOLE 40 MG VIAL IV SCH ×2 (11:56→21:12)
--- NOTE | 2019-02-03 13:00 | NUR ---
Rt Brady by to see if we can get some good weaning parameters, patient is unable to follow commands to take a deep breath and blow out to get the required weaning parameter values. Will try again later, informed Dr. Hernandes of the patients current ventilator weaning status. He stated to " keep working at it" no new orders.
--- NOTE | 2019-02-03 14:36 | NUR ---
Spoke to daughter Tata Kessler [phone] she is requesting and giving us consent to speak to Jagruti Wilhelm(sp) she is a flight nurse for [employer] and a good friend of the family in regards to her mother Ligia Maki. Tata feels that she will be better at asking the appropriate questions and being able to relay the information to her in a more understandable manner. Consent verified with LINA Lau
--- NOTE | 2019-02-03 15:11 | NUR ---
per Dr Hernandes D/Juana fentanyl and versed, no other new orders at this time
--- NOTE | 2019-02-03 15:40 | NUR ---
patient opens her eyes spontaneously, and tries to talk, I re-orient her that she is at the hospital and that we are working towards getting the "breathing tube" out. She nods her head that she agrees. She will squeeze my hand when asked to. She still however can not take the required deep breath and subsequent blowing out to get the required data for vent weaning parameters. She does wake up anxious but re-orients easily and will follow commands for slow deep breaths to help calm her down, and she will close her eyes and appear to sleep after some encouragement to settle down. Vital signs are stable will continue to monitor
--- NOTE | 2019-02-03 16:10 | NUR ---
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 According to the daughter Estefanía the patient was at a women's rehab in [facility], they dropped her off there on 01/20/19 to "get clean". They had not heard from their mom until the ER called them to inform them that she was in the hospital and " not doing well". Both daughters Estefanía and Tata have had an off and on again estranged relationship with their mother due to her drug use. The daughters have a better understanding of what is going on now with their mother as there was some confusion. 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 She also stated that she has been treated for hep C a few years back . She stated along with her bipolar diagnosis she is also schizophrenic and has a "dissociative personality disorder" the daughter did state that she was not sure if these diagnosis were due to her meth use or if the meth use was due to these diagnosis. The daughters are requesting some help with a PULST or advanced directive once their mother is in a clearer state of mind to make her wishes known should this happen again.
--- NOTE | 2019-02-03 18:20 | NUR ---
Problems reprioritized. Patient report given, questions answered & plan of care reviewed with Idalia MILLS.
--- NOTE | 2019-02-03 18:37 | NUR ---
[facility] I have received report from Delmi MILLS and had the opportunity to ask questions and assume patient care. Addendum: 02/03/19 at 1847 by Idalia Stovall RN Patient in bed, intubated and extremely restless and anxious. All sedation discontinued, no PRN anxiolytics available. Patient able to follow some commands, but then becomes too anxious/restless to follow commands. Breathing as fast as 50 breaths/min on spontaneous, occasionally desaturating to high 70s with extreme tachypnea. Will notify COINING PRESS OPERATOR if patient's anxiety not able to be resolved with non-pharmacologic measures.
[2019-02-03] MEDS: dexmedetomidin/NS 400mcg/100ml 100 ML IV SCH (19:27)
[2019-02-03] MEDS ORDERED: ESOMEPRAZOLE 40 MG VIAL IV SCH (20:00)
[2019-02-03] MEDS: lactobacillus rhamnosus 10,000 MMU CELLS/CAPSULE NG SCH (21:12)
[2019-02-04] VITALS (26 sets, daily range): BP systolic 113–160; BP diastolic 58–117
--- NOTE | 2019-02-04 00:23 | NUR ---
Patient wakes up constantly in very anxious state, breathes up to 40 breaths/min and desaturates to low 80s. Patient shakes head yes and no appropriately, follows commands, but immediately goes back into anxious and extremely restless state. Patient able to go back to sleep after being awake for a few minutes, respiratory rate drops to low 20s. Will continue to monitor patient anxiety and to titrate precedex PRN per eMAR order.
[2019-02-04] MEDS: dexmedetomidin/NS 400mcg/100ml 100 ML IV SCH ×2 (00:50→11:13)
[2019-02-04 02:42] LABS: BASOPHILS # (AUTO) 0.1 X10'3 (0-0.2); BASOPHILS % (AUTO) 0.5 % (0-1); EOSINOPHILS # (AUTO) 0.1 X10'3 (0-0.9); EOSINOPHILS % (AUTO) 0.6 % (0-6); HEMATOCRIT 38.6 % (35.0-45.0); LYMPHOCYTES # (AUTO) 0.5 X10'3 (1.1-4.8); LYMPHOCYTES % (AUTO) 4.7 % (21-51); MEAN CORPUSCULAR HEMOGLOBIN 23.2 PG (27.0-31.0); MEAN CORPUSCULAR HGB CONC 31.1 g/dL (33.0-36.5); MEAN CORPUSCULAR VOLUME 74.7 FL (78-98); MEAN PLATELET VOLUME 8.6 FL (7.4-10.4); MONOCYTES # (AUTO) 0.5 X10'3 (0-0.9); MONOCYTES % (AUTO) 4.6 % (2-12); NEUTROPHILS # (AUTO) 10.4 X10'3 (1.8-7.7); NEUTROPHILS % (AUTO) 89.6 % (42-75); PLATELET COUNT 67 X10'3 (140-440); RED BLOOD COUNT 5.17 X10'6 (4.20-5.60); RED CELL DISTRIBUTION WIDTH 19.5 % (11.5-14.5); WHITE BLOOD COUNT 11.6 X10'3 (4.5-11.0)
[2019-02-04 02:56] LABS: ABG HCO3 26.9 mmol/L (22.0-26.0); ABG OXYGEN SATURATION 95.6 % (95-98); ABG PCO2 (T) 47.8 mmHg (32.0-45.0); ABG PH (T) 7.368 (7.350-7.450); ABG PO2 (T) 76.5 mmHg (83-108); FCOHb 1.7 % (0.5-1.5); FMetHb 0.1 % (0.3-1.12); FO2Hb 93.9 % (94-100); MINUTE VOLUME 7 L/min; PEEP 5 cm H2O; RESPIRATORY RATE (OBSERVED) 20 b/min; TOTAL HEMOGLOBIN 13.1 G/dl (12.0-16.0)
[2019-02-04 02:57] LABS: ALANINE AMINOTRANSFERASE 184 U/L (12-78); ALBUMIN 1.4 G/DL (3.4-5.0); ALBUMIN/GLOBULIN RATIO 0.5 (1.1-1.5); ALKALINE PHOSPHATASE 99 IU/L (46-116); ANION GAP 2 (8-16); ASPARTATE AMINO TRANSFERASE 99 U/L (10-37); BILIRUBIN,TOTAL 0.6 MG/DL (0.1-1.0); BLOOD UREA NITROGEN 5 MG/DL (7-18); BUN/CREATININE RATIO 8.5 (6.6-38.0); CALCIUM 7.5 MG/DL (8.5-10.1); CHLORIDE 110 MMOL/L (99-107); CREATININE 0.59 MG/DL (0.40-0.90); GLUCOSE 144 MG/DL (70-104); MAGNESIUM 1.4 MG/DL (1.5-2.4); PHOSPHORUS 2.1 MG/DL (2.3-4.5); POTASSIUM 3.2 MMOL/L (3.5-5.1); SODIUM 142 MMOL/L (135-145); TOTAL CARBON DIOXIDE 30.2 MMOL/L (24-32); TOTAL PROTEIN 4.5 G/DL (6.4-8.2); eGFR > 90 ML/MIN
--- NOTE | 2019-02-04 04:01 | NUR ---
Precedex shut off for HR drop into 30s. Patient waking up restless, HR goes up to 70s when awake. Will continue to monitor patient anxiety and HR, will re-start/titrate precedex per eMAR orders.
--- NOTE | 2019-02-04 06:25 | NUR ---
Problems reprioritized. Patient report given, questions answered & plan of care reviewed with Delmi MILLS.
--- NOTE | 2019-02-04 06:30 | NUR ---
Patient in room CICU 2008. I have received report from Idalia MILLS and had the opportunity to ask questions and assume patient care. patient laying in bed with eyes closed, on ventilator setting of cpap, sating 96-98% fio2 30% peep of 5. Vital signs stable will continue to monitor
[2019-02-04] MEDS: K, MAG and/or Phos replacement - Verify level? MC SCH (08:00)
[2019-02-04] MEDS: levoTHYROXINE 175mcg tablet NG SCH (08:31)
[2019-02-04] MEDS: lactobacillus rhamnosus 10,000 MMU CELLS/CAPSULE NG SCH ×2 (08:31→21:56)
[2019-02-04] MEDS: atorvastatin 20mg tablet NG SCH (08:31)
[2019-02-04] MEDS: ESOMEPRAZOLE 40 MG VIAL IV SCH ×2 (08:31→21:56)
[2019-02-04] MEDS: dextrose 5%-1/2 normal saline 1,000 ML IV SCH (08:32)
[2019-02-04] MEDS: piperacillin/tazo 4.5gm/100ml 100 ML IV SCH ×2 (08:32→15:58)
[2019-02-04] MEDS: mineral oil/petrolatum ophthal oint EACHEYE SCH ×4 (08:32→21:56)
[2019-02-04] MEDS ORDERED: midazolam 2 mg/2 ml injection ONE (09:22)
[2019-02-04] MEDS ORDERED: fentaNYL/PF 50MCG/1 ML 2ML syringe ONE (09:22)
[2019-02-04] MEDS ORDERED: midazolam 2 mg/2 ml injection IV ONE (09:23)
[2019-02-04] MEDS ORDERED: fentaNYL/PF 50MCG/1 ML 2ML syringe IV ONE (09:23)
[2019-02-04] MEDS ORDERED: furosemide 40mg/4ml inj IV ONE (10:05)
[2019-02-04 10:54] LABS: BFSOURCE LEFT PLEURAL FLD; PLEURAL FLUID PH 7.352 (7.63-7.65)
--- NOTE | 2019-02-04 11:45 | NUR ---
Daughter Tata called to see how her mother is doing, she stated that patients sister and brother will be coming by osmany ( christiano and halle). She stated that her and her other sister will be in tomorrow to see the patient. All of the family is out of town, informed them of rounds that take place around 10am and that it would be a good time for the family to be here and participate in care decisions.
[2019-02-04] MEDS: vancomycin/NS 1 GM ADD-VANTAGE 250 ML IV SCH (12:40)
[2019-02-04] MEDS: potassium CL 10mEq/100ml bag 100 ML IV PRN ×3 (12:49→15:53)
--- NOTE | 2019-02-04 18:26 | NUR ---
Problems reprioritized. Patient report given, questions answered & plan of care reviewed with Idalia MILLS.
--- NOTE | 2019-02-04 18:29 | NUR ---
Patient in room CICU 2008. I have received report from Delmi MILLS and had the opportunity to ask questions and assume patient care. Patient intubated, intermittently restless/anxious and sedated on .8mcg/kg/min precedex. HR in low 60s in sinus rhythm. Patient saturating at 95% on 30% FIO2 on cpap mode, breathing at 25 breaths/min. Will continue to monitor patient closely and to assess patient anxiety.
[2019-02-04] MEDS: furosemide 40mg/4ml inj IV SCH (21:56)
--- NOTE | 2019-02-04 23:20 | NUR ---
Patient woke up for linen change, cooperative and not as anxious as last night. Able to communicate needs by shaking and nodding head. Also shaking/nodding head appropriately to questions, following commands. Will continue to monitor patient and to titrate precedex as needed.
[2019-02-05] VITALS (23 sets, daily range): BP systolic 98–176; BP diastolic 50–77
[2019-02-05] MEDS: piperacillin/tazo 4.5gm/100ml 100 ML IV SCH ×4 (00:26→23:36)
[2019-02-05] MEDS: vancomycin/NS 1 GM ADD-VANTAGE 250 ML IV SCH ×3 (00:26→23:36)
[2019-02-05] MEDS: mineral oil/petrolatum ophthal oint EACHEYE SCH ×5 (02:03→23:36)
[2019-02-05 02:47] LABS: BASOPHILS % (AUTO) 0.2 % (0-1); EOSINOPHILS # (AUTO) 0.1 X10'3 (0-0.9); EOSINOPHILS % (AUTO) 0.9 % (0-6); HEMATOCRIT 38.8 % (35.0-45.0); HEMOGLOBIN 12.2 g/dl (12.0-16.0); LYMPHOCYTES # (AUTO) 0.7 X10'3 (1.1-4.8); LYMPHOCYTES % (AUTO) 5.8 % (21-51); MEAN CORPUSCULAR HEMOGLOBIN 22.9 PG (27.0-31.0); MEAN CORPUSCULAR HGB CONC 31.4 g/dL (33.0-36.5); MEAN CORPUSCULAR VOLUME 72.8 FL (78-98); MEAN PLATELET VOLUME 8.8 FL (7.4-10.4); MONOCYTES # (AUTO) 0.6 X10'3 (0-0.9); MONOCYTES % (AUTO) 5.1 % (2-12); PLATELET COUNT 91 X10'3 (140-440); RED BLOOD COUNT 5.33 X10'6 (4.20-5.60); RED CELL DISTRIBUTION WIDTH 19.5 % (11.5-14.5); WHITE BLOOD COUNT 12.5 X10'3 (4.5-11.0)
[2019-02-05 02:57] LABS: ALANINE AMINOTRANSFERASE 158 U/L (12-78); ALBUMIN 1.5 G/DL (3.4-5.0); ALBUMIN/GLOBULIN RATIO 0.4 (1.1-1.5); ALKALINE PHOSPHATASE 92 IU/L (46-116); ANION GAP 3 (8-16); ASPARTATE AMINO TRANSFERASE 83 U/L (10-37); BILIRUBIN,TOTAL 0.7 MG/DL (0.1-1.0); BLOOD UREA NITROGEN 8 MG/DL (7-18); BUN/CREATININE RATIO 12.7 (6.6-38.0); CALCIUM 7.7 MG/DL (8.5-10.1); CHLORIDE 105 MMOL/L (99-107); CREATININE 0.63 MG/DL (0.40-0.90); GLUCOSE 112 MG/DL (70-104); MAGNESIUM 1.2 MG/DL (1.5-2.4); PHOSPHORUS 2.4 MG/DL (2.3-4.5); SODIUM 144 MMOL/L (135-145); eGFR > 90 ML/MIN
[2019-02-05 02:59] LABS: POTASSIUM 2.9 MMOL/L (3.5-5.1)
[2019-02-05] MEDS: POTASSIUM BICARB 20meq eff tab 20 MEQ TABLET.EFF NG PRN ×5 (03:19→23:34)
[2019-02-05 03:20] LABS: ABG BASE EXCESS 11.1 mmol/L (-2.0-3.0); ABG HCO3 35.9 mmol/L (22.0-26.0); ABG OXYGEN SATURATION 90.8 % (95-98); ABG PCO2 (T) 47.6 mmHg (32.0-45.0); ABG PH (T) 7.495 (7.350-7.450); ABG PO2 (T) 55.3 mmHg (83-108); FCOHb 1.3 % (0.5-1.5); FMetHb 0.2 % (0.3-1.12); FO2Hb 89.4 % (94-100); MINUTE VOLUME 8 L/min; PEEP 5 cm H2O; RESPIRATORY RATE (OBSERVED) 22 b/min; TOTAL HEMOGLOBIN 13.5 G/dl (12.0-16.0)
[2019-02-05] MEDS: dexmedetomidin/NS 400mcg/100ml 100 ML IV SCH ×2 (03:20→22:46)
[2019-02-05 03:31] LABS: ANISOCYTOSIS 2+; HYPOCHROMASIA 1+; MICROCYTOSIS 1+; PLATELET ESTIMATE DECREASED; TOTAL CELLS COUNTED 100
[2019-02-05] MEDS ORDERED: magnesium 2GM in 50ml NS 50 ML IV PRN (04:30)
--- NOTE | 2019-02-05 06:14 | NUR ---
Problems reprioritized. Patient report given, questions answered & plan of care reviewed with Jaylen MILLS.
[2019-02-05] MEDS: K, MAG and/or Phos replacement - Verify level? MC SCH (08:00)
[2019-02-05] MEDS: furosemide 40mg/4ml inj IV SCH ×2 (08:37→19:46)
[2019-02-05] MEDS: levoTHYROXINE 175mcg tablet NG SCH (08:37)
[2019-02-05] MEDS: atorvastatin 20mg tablet NG SCH (08:37)
[2019-02-05] MEDS: lactobacillus rhamnosus 10,000 MMU CELLS/CAPSULE NG SCH ×2 (08:37→19:46)
[2019-02-05] MEDS: ESOMEPRAZOLE 40 MG VIAL IV SCH ×2 (08:37→19:46)
[2019-02-05 16:21] LABS: MAGNESIUM 1.6 MG/DL (1.5-2.4); POTASSIUM 3.1 MMOL/L (3.5-5.1)
--- NOTE | 2019-02-05 18:20 | NUR ---
Patient in room CICU 2008. I have received report from LINA York and had the opportunity to ask questions and assume patient care. Patient is awake and alert x2. Patient with Oxygen Saturation 95% with respiratory rate 24. Patient head movement with inhalation. Patient feels like she is "breathing okay". Oxygen via nasal cannula at 3 lpm. Normal sinus on the monitor. Patient with cabrera catheter in place. Will continue to monitor.
[2019-02-06] VITALS (24 sets, daily range): BP systolic 132–179; BP diastolic 63–83
--- NOTE | 2019-02-06 00:39 | NUR ---
Patient c/o generalized pain. Patient is unable to state where she is having pain relates she is "Just uncomfortable". phone call to July RAJWINDER Ponce re pain. She will place orders.
[2019-02-06] MEDS ORDERED: HYDROcodone/acetaminophen 10/325mg tab PO PRN (00:40)
[2019-02-06] MEDS ORDERED: HYDROcodone/acetaminophen 5mg/325mg tablet PO PRN (00:40)
--- NOTE | 2019-02-06 01:14 | NUR ---
offered patient [place] for pain as ordered. Patient now states "I am not in pain, I'm anxious!". Patient repositioned and IV turned on for distraction. Oxygen saturation 94% respiratory rate 24. will continue to monitor.
--- NOTE | 2019-02-06 01:20 | NUR ---
Phone call to Jessy Ponce NP re: anxiety and agitation. Patient with decreasing Oxygen Saturation to 92% with agitation. BP 159/81. HR 83, RR 24 currently on 4 lpm oxygen via nasal cannula. Discussed BiPap mask with patient. Patient feels that she would not be able to keep a mask on her face at this time due to her anxiety. Hortencia Ponce OUTCOMES ANALYST to place order for Ativan. RT paged for BiPap to bedside.
[2019-02-06] MEDS ORDERED: LORazepam 2 mg/ml vial IV ONE (01:30)
[2019-02-06] MEDS: POTASSIUM BICARB 20meq eff tab 20 MEQ TABLET.EFF NG PRN ×2 (04:49→09:03)
[2019-02-06 05:30] LABS: BASOPHILS % (AUTO) 0.2 % (0-1); EOSINOPHILS % (AUTO) 0.2 % (0-6); HEMOGLOBIN 12.2 g/dl (12.0-16.0); LYMPHOCYTES # (AUTO) 0.9 X10'3 (1.1-4.8); MEAN CORPUSCULAR HEMOGLOBIN 23.3 PG (27.0-31.0); MEAN CORPUSCULAR HGB CONC 32.1 g/dL (33.0-36.5); MEAN CORPUSCULAR VOLUME 72.6 FL (78-98); MEAN PLATELET VOLUME 8.8 FL (7.4-10.4); MONOCYTES # (AUTO) 0.8 X10'3 (0-0.9); MONOCYTES % (AUTO) 5.5 % (2-12); NEUTROPHILS # (AUTO) 12.7 X10'3 (1.8-7.7); NEUTROPHILS % (AUTO) 88.1 % (42-75); PLATELET COUNT 139 X10'3 (140-440); RED BLOOD COUNT 5.23 X10'6 (4.20-5.60); RED CELL DISTRIBUTION WIDTH 19.7 % (11.5-14.5); WHITE BLOOD COUNT 14.4 X10'3 (4.5-11.0)
[2019-02-06 05:47] LABS: ALANINE AMINOTRANSFERASE 283 U/L (12-78); ALBUMIN 1.9 G/DL (3.4-5.0); ALBUMIN/GLOBULIN RATIO 0.5 (1.1-1.5); ALKALINE PHOSPHATASE 148 IU/L (46-116); ANION GAP 2 (8-16); ASPARTATE AMINO TRANSFERASE 249 U/L (10-37); BILIRUBIN,TOTAL 1.1 MG/DL (0.1-1.0); BLOOD UREA NITROGEN 7 MG/DL (7-18); BUN/CREATININE RATIO 12.7 (6.6-38.0); CALCIUM 8.1 MG/DL (8.5-10.1); CHLORIDE 101 MMOL/L (99-107); CREATININE 0.55 MG/DL (0.40-0.90); GLUCOSE 75 MG/DL (70-104); MAGNESIUM 1.5 MG/DL (1.5-2.4); PHOSPHORUS 2.7 MG/DL (2.3-4.5); POTASSIUM 3.2 MMOL/L (3.5-5.1); PREALBUMIN 12.8 MG/DL (19-36); SODIUM 142 MMOL/L (135-145); TOTAL CARBON DIOXIDE 39.5 MMOL/L (24-32); TOTAL PROTEIN 5.8 G/DL (6.4-8.2); eGFR > 90 ML/MIN
--- NOTE | 2019-02-06 06:20 | NUR ---
Problems reprioritized. Patient report given, questions answered & plan of care reviewed with LINA Lozano.
--- NOTE | 2019-02-06 06:30 | NUR ---
Patient in room CICU 2008. I have received report from KADEEM MILLS and had the opportunity to ask questions and assume patient care.
[2019-02-06 06:59] LABS: ANISOCYTOSIS 2+; GIANT PLATELET FEW; LARGE PLATELETS FEW; MICROCYTOSIS 1+; PLATELET ESTIMATE DECREASED
[2019-02-06 07:00] LABS: SCHISTOCYTES FEW; STOMATOCYTES 1+
[2019-02-06] MEDS: K, MAG and/or Phos replacement - Verify level? MC SCH (08:00)
[2019-02-06] MEDS: furosemide 40mg/4ml inj IV SCH (08:00)
[2019-02-06] MEDS: mineral oil/petrolatum ophthal oint EACHEYE SCH ×3 (08:00→16:10)
[2019-02-06] MEDS ORDERED: potassium Cl 20 mEq SR tablet PO PRN (08:05)
[2019-02-06] MEDS: atorvastatin 20mg tablet NG SCH (09:02)
[2019-02-06] MEDS: levoTHYROXINE 175mcg tablet NG SCH (09:02)
[2019-02-06] MEDS: lactobacillus rhamnosus 10,000 MMU CELLS/CAPSULE NG SCH ×2 (09:02→19:37)
[2019-02-06] MEDS: lisinopril 20mg tablet PO SCH (09:02)
[2019-02-06] MEDS: carvedilol 6.25mg tablet PO SCH (09:02)
[2019-02-06] MEDS: ESOMEPRAZOLE 40 MG VIAL IV SCH ×2 (09:03→19:37)
[2019-02-06] MEDS: piperacillin/tazo 4.5gm/100ml 100 ML IV SCH (09:04)
[2019-02-06] MEDS: vancomycin/NS 1 GM ADD-VANTAGE 250 ML IV SCH (11:31)
--- NOTE | 2019-02-06 11:58 | NUR ---
transfer orders received on this patient , waiting on bed available in pCU
--- NOTE | 2019-02-06 15:42 | NUR ---
Reassessment: Patient extubated yesterday, diet advanced to pureed, thin liquids. PO Intake 25% so far, poor appetite is likely d/t recent intubation. Pt is s/p thoracentesis with 1.2 liters out. Per [facility] notes pt with SDTI/DTI to the following: R heel, knee, elbow, L heel, hip, elbow, knee, and sacrum. Pt admit with sepsis, acute respiratory failure-now extubated, COPD, GIB. Will continue to follow and monitor PO intake, diet texture and monitor need for ONS if PO intake remains poor. Recommendations: 1) Continue pureed diet 2) Monitor need for ONS 3) Weight per rx 4) Consider BSS for advancement of diet texture as indicated Addendum: 02/06/19 at [address] Amended: Links added.
[2019-02-07] VITALS (18 sets, daily range): BP systolic 113–175; BP diastolic 61–94
[2019-02-07] MEDS: mineral oil/petrolatum ophthal oint EACHEYE SCH ×4 (00:19→19:27)
[2019-02-07] MEDS: vancomycin/NS 1 GM ADD-VANTAGE 250 ML IV SCH ×2 (00:19→11:46)
[2019-02-07 02:20] LABS: BASOPHILS # (AUTO) 0.1 X10'3 (0-0.2); BASOPHILS % (AUTO) 0.5 % (0-1); EOSINOPHILS # (AUTO) 0.1 X10'3 (0-0.9); EOSINOPHILS % (AUTO) 1.1 % (0-6); HEMATOCRIT 36.1 % (35.0-45.0); HEMOGLOBIN 11.6 g/dl (12.0-16.0); LYMPHOCYTES % (AUTO) 10.3 % (21-51); MEAN CORPUSCULAR HEMOGLOBIN 23.2 PG (27.0-31.0); MEAN CORPUSCULAR HGB CONC 32.1 g/dL (33.0-36.5); MEAN CORPUSCULAR VOLUME 72.3 FL (78-98); MEAN PLATELET VOLUME 8.8 FL (7.4-10.4); MONOCYTES # (AUTO) 0.7 X10'3 (0-0.9); MONOCYTES % (AUTO) 6.9 % (2-12); NEUTROPHILS % (AUTO) 81.2 % (42-75); PLATELET COUNT 157 X10'3 (140-440); RED BLOOD COUNT 4.99 X10'6 (4.20-5.60); RED CELL DISTRIBUTION WIDTH 19.4 % (11.5-14.5); WHITE BLOOD COUNT 9.9 X10'3 (4.5-11.0)
[2019-02-07 02:33] LABS: ALANINE AMINOTRANSFERASE 250 U/L (12-78); ALBUMIN 1.8 G/DL (3.4-5.0); ALBUMIN/GLOBULIN RATIO 0.5 (1.1-1.5); ALKALINE PHOSPHATASE 142 IU/L (46-116); ANION GAP -2 (8-16); ASPARTATE AMINO TRANSFERASE 206 U/L (10-37); BILIRUBIN,TOTAL 0.9 MG/DL (0.1-1.0); BLOOD UREA NITROGEN 7 MG/DL (7-18); BUN/CREATININE RATIO 15.2 (6.6-38.0); CALCIUM 8.4 MG/DL (8.5-10.1); CHLORIDE 104 MMOL/L (99-107); CREATININE 0.46 MG/DL (0.40-0.90); GLUCOSE 73 MG/DL (70-104); MAGNESIUM 1.6 MG/DL (1.5-2.4); PHOSPHORUS 3.2 MG/DL (2.3-4.5); POTASSIUM 3.5 MMOL/L (3.5-5.1); SODIUM 143 MMOL/L (135-145); TOTAL PROTEIN 5.3 G/DL (6.4-8.2); eGFR > 90 ML/MIN
[2019-02-07 02:42] LABS: TOTAL CARBON DIOXIDE 40.9 MMOL/L (24-32)
[2019-02-07 03:11] LABS: MICROCYTOSIS 2+; PLATELET ESTIMATE NORMAL
[2019-02-07 03:12] LABS: ANISOCYTOSIS 2+
[2019-02-07 07:03] LABS: MAGNESIUM 1.7 MG/DL (1.5-2.4); POTASSIUM 3.6 MMOL/L (3.5-5.1)
[2019-02-07] MEDS: lactobacillus rhamnosus 10,000 MMU CELLS/CAPSULE NG SCH ×2 (07:11→20:00)
[2019-02-07] MEDS: atorvastatin 20mg tablet NG SCH (07:11)
[2019-02-07] MEDS: levoTHYROXINE 175mcg tablet NG SCH (07:11)
[2019-02-07] MEDS: ESOMEPRAZOLE 40 MG VIAL IV SCH ×2 (07:11→20:00)
[2019-02-07] MEDS: lisinopril 20mg tablet PO SCH (07:12)
[2019-02-07] MEDS: furosemide 40mg tablet PO SCH (07:12)
[2019-02-07] MEDS: K, MAG and/or Phos replacement - Verify level? MC SCH (07:36)
[2019-02-07] MEDS: carvedilol 6.25mg tablet PO SCH (08:48)
--- NOTE | 2019-02-07 08:56 | NUR ---
Call received from ultrasound. Patient had breakfast this AM, will keep NPO until abdominal US is done this afternoon.
--- NOTE | 2019-02-07 15:24 | NUR ---
Report given to LINA Chaves. All questions answered. Patient transported to Room 3021 via wheelchair accompanied by nurse.
--- NOTE | 2019-02-07 18:20 | NUR ---
Patient in room PCU 3021. I have received report from Anastacio MILLS and had the opportunity to ask questions and assume patient care.
[2019-02-08] MEDS: vancomycin/NS 1 GM ADD-VANTAGE 250 ML IV SCH ×2 (00:27→12:17)
[2019-02-08] MEDS: mineral oil/petrolatum ophthal oint EACHEYE SCH ×2 (01:40→07:21)
[2019-02-08 03:00] VITALS: BP 175/87
[2019-02-08 06:00] VITALS: BP 183/94
--- NOTE | 2019-02-08 06:05 | NUR ---
Problems reprioritized. Patient report given, questions answered & plan of care reviewed with Maggie MILLS.
--- NOTE | 2019-02-08 06:47 | NUR ---
Patient in room PCU 3021. I have received report from LINA Cordero and had the opportunity to ask questions and assume patient care.
[2019-02-08 07:24] LABS: BASOPHILS # (AUTO) 0.1 X10'3 (0-0.2); BASOPHILS % (AUTO) 0.7 % (0-1); EOSINOPHILS # (AUTO) 0.1 X10'3 (0-0.9); EOSINOPHILS % (AUTO) 0.7 % (0-6); HEMOGLOBIN 12.1 g/dl (12.0-16.0); LYMPHOCYTES # (AUTO) 1.1 X10'3 (1.1-4.8); LYMPHOCYTES % (AUTO) 10.9 % (21-51); MEAN CORPUSCULAR HGB CONC 31.8 g/dL (33.0-36.5); MEAN CORPUSCULAR VOLUME 72.4 FL (78-98); MEAN PLATELET VOLUME 8.9 FL (7.4-10.4); MONOCYTES # (AUTO) 0.6 X10'3 (0-0.9); MONOCYTES % (AUTO) 5.9 % (2-12); NEUTROPHILS % (AUTO) 81.8 % (42-75); PLATELET COUNT 186 X10'3 (140-440); RED BLOOD COUNT 5.25 X10'6 (4.20-5.60); RED CELL DISTRIBUTION WIDTH 20.6 % (11.5-14.5); WHITE BLOOD COUNT 9.8 X10'3 (4.5-11.0)
[2019-02-08] MEDS: furosemide 40mg tablet PO SCH (07:32)
[2019-02-08] MEDS: lactobacillus rhamnosus 10,000 MMU CELLS/CAPSULE NG SCH ×2 (07:32→20:05)
[2019-02-08] MEDS: lisinopril 20mg tablet PO SCH (07:32)
[2019-02-08] MEDS: carvedilol 6.25mg tablet PO SCH (07:32)
[2019-02-08] MEDS: levoTHYROXINE 175mcg tablet NG SCH (07:33)
[2019-02-08 07:45] LABS: ALANINE AMINOTRANSFERASE 206 U/L (12-78); ALBUMIN/GLOBULIN RATIO 0.5 (1.1-1.5); ALKALINE PHOSPHATASE 156 IU/L (46-116); ANION GAP 2 (8-16); ASPARTATE AMINO TRANSFERASE 127 U/L (10-37); BILIRUBIN,TOTAL 0.7 MG/DL (0.1-1.0); BLOOD UREA NITROGEN 8 MG/DL (7-18); BUN/CREATININE RATIO 15.1 (6.6-38.0); CALCIUM 8.5 MG/DL (8.5-10.1); CHLORIDE 104 MMOL/L (99-107); CREATININE 0.53 MG/DL (0.40-0.90); GLUCOSE 81 MG/DL (70-104); MAGNESIUM 1.7 MG/DL (1.5-2.4); PHOSPHORUS 4.1 MG/DL (2.3-4.5); POTASSIUM 3.2 MMOL/L (3.5-5.1); SODIUM 143 MMOL/L (135-145); TOTAL CARBON DIOXIDE 36.6 MMOL/L (24-32); TOTAL PROTEIN 5.8 G/DL (6.4-8.2); eGFR > 90 ML/MIN
[2019-02-08 07:46] LABS: ANISOCYTOSIS 3+; HYPOCHROMASIA 1+; MICROCYTOSIS 1+; PLATELET ESTIMATE NORMAL
[2019-02-08 07:47] LABS: STOMATOCYTES 1+
[2019-02-08] MEDS: K, MAG and/or Phos replacement - Verify level? MC SCH (08:00)
[2019-02-08] MEDS: ESOMEPRAZOLE 40 MG VIAL IV SCH ×2 (08:24→20:05)
[2019-02-08] MEDS: potassium Cl 20 mEq SR tablet PO PRN ×3 (10:01→17:26)
[2019-02-08 11:00] VITALS: BP 156/83
[2019-02-08] MEDS ORDERED: VANCOMYCIN LEVEL IV ONE (11:30)
[2019-02-08 15:00] VITALS: BP 146/73
[2019-02-08 18:00] VITALS: BP 132/63
--- NOTE | 2019-02-08 18:33 | NUR ---
Problems reprioritized. Patient report given, questions answered & plan of care reviewed with LINA REDDY.
[2019-02-08 22:00] VITALS: BP 161/89
[2019-02-09] MEDS: vancomycin/NS 1 GM ADD-VANTAGE 250 ML IV SCH ×3 (00:10→23:27)
[2019-02-09 03:43] VITALS: BP 176/93
[2019-02-09 06:00] VITALS: BP 159/83
[2019-02-09 06:01] LABS: BASOPHILS # (AUTO) 0.2 X10'3 (0-0.2); EOSINOPHILS # (AUTO) 0.1 X10'3 (0-0.9); EOSINOPHILS % (AUTO) 0.4 % (0-6); HEMATOCRIT 41.7 % (35.0-45.0); HEMOGLOBIN 13.3 g/dl (12.0-16.0); LYMPHOCYTES # (AUTO) 1.1 X10'3 (1.1-4.8); LYMPHOCYTES % (AUTO) 6.9 % (21-51); MEAN CORPUSCULAR HEMOGLOBIN 23.2 PG (27.0-31.0); MEAN CORPUSCULAR HGB CONC 31.9 g/dL (33.0-36.5); MEAN CORPUSCULAR VOLUME 72.6 FL (78-98); MEAN PLATELET VOLUME 8.6 FL (7.4-10.4); MONOCYTES # (AUTO) 0.7 X10'3 (0-0.9); MONOCYTES % (AUTO) 4.2 % (2-12); NEUTROPHILS # (AUTO) 13.8 X10'3 (1.8-7.7); NEUTROPHILS % (AUTO) 87.5 % (42-75); PLATELET COUNT 231 X10'3 (140-440); RED BLOOD COUNT 5.75 X10'6 (4.20-5.60); RED CELL DISTRIBUTION WIDTH 20.3 % (11.5-14.5); WHITE BLOOD COUNT 15.8 X10'3 (4.5-11.0)
[2019-02-09 06:15] LABS: ALANINE AMINOTRANSFERASE 197 U/L (12-78); ALBUMIN 2.3 G/DL (3.4-5.0); ALBUMIN/GLOBULIN RATIO 0.5 (1.1-1.5); ALKALINE PHOSPHATASE 158 IU/L (46-116); ANION GAP 1 (8-16); ASPARTATE AMINO TRANSFERASE 91 U/L (10-37); BILIRUBIN,TOTAL 0.7 MG/DL (0.1-1.0); BLOOD UREA NITROGEN 8 MG/DL (7-18); BUN/CREATININE RATIO 13.3 (6.6-38.0); CALCIUM 8.6 MG/DL (8.5-10.1); CHLORIDE 104 MMOL/L (99-107); GLUCOSE 94 MG/DL (70-104); MAGNESIUM 1.6 MG/DL (1.5-2.4); PHOSPHORUS 3.6 MG/DL (2.3-4.5); POTASSIUM 4.9 MMOL/L (3.5-5.1); SODIUM 142 MMOL/L (135-145); TOTAL CARBON DIOXIDE 37.3 MMOL/L (24-32); TOTAL PROTEIN 6.6 G/DL (6.4-8.2); eGFR > 90 ML/MIN
--- NOTE | 2019-02-09 06:15 | NUR ---
Patient in room PCU 3021. I have received report from LINA Young and had the opportunity to ask questions and assume patient care.
[2019-02-09] MEDS: lactobacillus rhamnosus 10,000 MMU CELLS/CAPSULE NG SCH ×2 (07:47→19:47)
[2019-02-09] MEDS: levoTHYROXINE 175mcg tablet NG SCH (07:47)
[2019-02-09] MEDS: carvedilol 6.25mg tablet PO SCH (07:47)
[2019-02-09] MEDS: furosemide 40mg tablet PO SCH (07:47)
[2019-02-09] MEDS: lisinopril 20mg tablet PO SCH (07:48)
[2019-02-09] MEDS: ESOMEPRAZOLE 40 MG VIAL IV SCH ×2 (07:52→19:47)
[2019-02-09] MEDS: K, MAG and/or Phos replacement - Verify level? MC SCH (07:53)
[2019-02-09 11:00] VITALS: BP 143/73
--- NOTE | 2019-02-09 12:21 | NUR ---
reassessment: Pt PO increased to 100% meals past 2 days meeting needs. LBM 02/06. Will continue to monitor. Recommendations: 1) Continue pureed diet 2) Weight per rx 3) ELECTROPHYSIOLOGIST BSS for advancement of diet texture as indicated Addendum: 02/09/19 at [address] Amended: Links added.
[2019-02-09 15:00] VITALS: BP 151/75
--- NOTE | 2019-02-09 18:00 | NUR ---
Patient in room PCU 3021. I have received report from LINA Mcdaniels and had the opportunity to ask questions and assume patient care.
--- NOTE | 2019-02-09 18:49 | NUR ---
Problems reprioritized. Patient report given, questions answered & plan of care reviewed with LINA Cook.
[2019-02-09 19:00] VITALS: BP 134/53
[2019-02-09 23:00] VITALS: BP 152/70
[2019-02-10 03:00] VITALS: BP 172/81
--- NOTE | 2019-02-10 05:00 | NUR ---
Patient was placed on O2 on dayshift, have weaned her off.
--- NOTE | 2019-02-10 06:21 | NUR ---
Problems reprioritized. Patient report given, questions answered & plan of care reviewed with LINA Mcdaniels.
--- NOTE | 2019-02-10 06:29 | NUR ---
Patient in room PCU 3021. I have received report from LINA Cook and had the opportunity to ask questions and assume patient care. Pt is sleeping will continue to monitor.
[2019-02-10 06:55] LABS: BASOPHILS # (AUTO) 0.1 X10'3 (0-0.2); BASOPHILS % (AUTO) 1.4 % (0-1); EOSINOPHILS % (AUTO) 0.3 % (0-6); HEMATOCRIT 36.9 % (35.0-45.0); HEMOGLOBIN 11.7 g/dl (12.0-16.0); LYMPHOCYTES # (AUTO) 1.3 X10'3 (1.1-4.8); LYMPHOCYTES % (AUTO) 13.1 % (21-51); MEAN CORPUSCULAR HEMOGLOBIN 23.2 PG (27.0-31.0); MEAN CORPUSCULAR HGB CONC 31.8 g/dL (33.0-36.5); MEAN CORPUSCULAR VOLUME 72.8 FL (78-98); MEAN PLATELET VOLUME 9.3 FL (7.4-10.4); MONOCYTES # (AUTO) 0.6 X10'3 (0-0.9); MONOCYTES % (AUTO) 5.7 % (2-12); NEUTROPHILS # (AUTO) 7.8 X10'3 (1.8-7.7); NEUTROPHILS % (AUTO) 79.5 % (42-75); PLATELET COUNT 223 X10'3 (140-440); RED BLOOD COUNT 5.06 X10'6 (4.20-5.60); WHITE BLOOD COUNT 9.8 X10'3 (4.5-11.0)
[2019-02-10 07:00] VITALS: BP 173/83
[2019-02-10 07:25] LABS: ALANINE AMINOTRANSFERASE 131 U/L (12-78); ALBUMIN 2.1 G/DL (3.4-5.0); ALBUMIN/GLOBULIN RATIO 0.6 (1.1-1.5); ALKALINE PHOSPHATASE 126 IU/L (46-116); ANION GAP 7 (8-16); ASPARTATE AMINO TRANSFERASE 61 U/L (10-37); BILIRUBIN,TOTAL 0.5 MG/DL (0.1-1.0); BLOOD UREA NITROGEN 8 MG/DL (7-18); BUN/CREATININE RATIO 14.5 (6.6-38.0); CALCIUM 8.5 MG/DL (8.5-10.1); CHLORIDE 106 MMOL/L (99-107); CREATININE 0.55 MG/DL (0.40-0.90); GLUCOSE 76 MG/DL (70-104); MAGNESIUM 1.6 MG/DL (1.5-2.4); PHOSPHORUS 3.4 MG/DL (2.3-4.5); POTASSIUM 3.6 MMOL/L (3.5-5.1); PREALBUMIN 14.1 MG/DL (19-36); SODIUM 146 MMOL/L (135-145); TOTAL CARBON DIOXIDE 33.2 MMOL/L (24-32); TOTAL PROTEIN 5.9 G/DL (6.4-8.2); eGFR > 90 ML/MIN
[2019-02-10] MEDS: K, MAG and/or Phos replacement - Verify level? MC SCH (08:00)
[2019-02-10] MEDS: lactobacillus rhamnosus 10,000 MMU CELLS/CAPSULE NG SCH ×2 (08:10→19:17)
[2019-02-10] MEDS: ESOMEPRAZOLE 40 MG VIAL IV SCH ×2 (08:10→19:17)
[2019-02-10] MEDS: furosemide 40mg tablet PO SCH (08:10)
[2019-02-10] MEDS: lisinopril 20mg tablet PO SCH (08:11)
[2019-02-10] MEDS: levoTHYROXINE 175mcg tablet NG SCH (08:11)
[2019-02-10] MEDS: carvedilol 6.25mg tablet PO SCH (08:11)
[2019-02-10 08:49] LABS: ANISOCYTOSIS 2+; PLATELET ESTIMATE NORMAL
[2019-02-10 08:50] LABS: HYPOCHROMASIA 1+; MICROCYTOSIS 2+
--- NOTE | 2019-02-10 10:32 | NUR ---
Called [facility] in [place], where the pt was staying when she was hospitalized. They still have all her belongings. When the daughter, Tata, was called, she said she may be able to have her son continuous pickling line pickler helper her belongings in "a couple days, because it's about 6 hours" from where the [place]ata is. When offered the telephone number to the diane, Tata stated she would look it up.
[2019-02-10 11:00] VITALS: BP 125/84
[2019-02-10] MEDS: vancomycin/NS 1 GM ADD-VANTAGE 250 ML IV SCH ×2 (12:00→14:27)
--- NOTE | 2019-02-10 18:23 | NUR ---
Patient in room PCU 3021. I have received report from LINA Mcdaniels and had the opportunity to ask questions and assume patient care.
--- NOTE | 2019-02-10 18:25 | NUR ---
Problems reprioritized. Patient report given, questions answered & plan of care reviewed with LINA Cook.
[2019-02-10 19:00] VITALS: BP 148/77
--- NOTE | 2019-02-10 21:22 | NUR ---
This patient is ambulatory, and is able to turn and reposition herself ad leah. This patient rarely stays in one position for more than one hour, and is turning herself approximately 2-3 times per 2 hours. Will continue to monitor this patient and provide turning when necessary. Addendum: 02/10/19 at 2127 by Joyce Sevilla RN Amended: Links added.
[2019-02-10 23:00] VITALS: BP 134/83
[2019-02-11] MEDS: vancomycin/NS 1 GM ADD-VANTAGE 250 ML IV SCH ×2 (00:21→12:49)
[2019-02-11 03:00] VITALS: BP 167/84
[2019-02-11 03:47] LABS: BASOPHILS # (AUTO) 0.1 X10'3 (0-0.2); BASOPHILS % (AUTO) 1.2 % (0-1); EOSINOPHILS # (AUTO) 0.1 X10'3 (0-0.9); EOSINOPHILS % (AUTO) 0.7 % (0-6); HEMATOCRIT 35.2 % (35.0-45.0); HEMOGLOBIN 11.3 g/dl (12.0-16.0); LYMPHOCYTES # (AUTO) 1.3 X10'3 (1.1-4.8); LYMPHOCYTES % (AUTO) 14.7 % (21-51); MEAN CORPUSCULAR HEMOGLOBIN 23.5 PG (27.0-31.0); MEAN CORPUSCULAR HGB CONC 32.2 g/dL (33.0-36.5); MEAN CORPUSCULAR VOLUME 72.9 FL (78-98); MONOCYTES # (AUTO) 0.7 X10'3 (0-0.9); MONOCYTES % (AUTO) 7.4 % (2-12); NEUTROPHILS # (AUTO) 6.9 X10'3 (1.8-7.7); PLATELET COUNT 209 X10'3 (140-440); RED BLOOD COUNT 4.83 X10'6 (4.20-5.60); RED CELL DISTRIBUTION WIDTH 20.9 % (11.5-14.5); WHITE BLOOD COUNT 9.1 X10'3 (4.5-11.0)
[2019-02-11 04:01] LABS: ALANINE AMINOTRANSFERASE 113 U/L (12-78); ALBUMIN 2.2 G/DL (3.4-5.0); ALBUMIN/GLOBULIN RATIO 0.6 (1.1-1.5); ALKALINE PHOSPHATASE 120 IU/L (46-116); ANION GAP 3 (8-16); ASPARTATE AMINO TRANSFERASE 49 U/L (10-37); BILIRUBIN,TOTAL 0.5 MG/DL (0.1-1.0); BLOOD UREA NITROGEN 15 MG/DL (7-18); BUN/CREATININE RATIO 22.7 (6.6-38.0); CALCIUM 8.5 MG/DL (8.5-10.1); CHLORIDE 107 MMOL/L (99-107); CREATININE 0.66 MG/DL (0.40-0.90); GLUCOSE 96 MG/DL (70-104); MAGNESIUM 1.6 MG/DL (1.5-2.4); PHOSPHORUS 3.9 MG/DL (2.3-4.5); POTASSIUM 3.5 MMOL/L (3.5-5.1); SODIUM 144 MMOL/L (135-145); TOTAL CARBON DIOXIDE 33.8 MMOL/L (24-32); eGFR 90 ML/MIN
[2019-02-11 04:22] LABS: ANISOCYTOSIS 3+; HYPOCHROMASIA 1+; MICROCYTOSIS 1+; PLATELET ESTIMATE NORMAL
[2019-02-11 06:00] VITALS: BP 162/84
--- NOTE | 2019-02-11 06:29 | NUR ---
Problems reprioritized. Patient report given, questions answered & plan of care reviewed with LINA Mcdaniels.
[2019-02-11] MEDS: lactobacillus rhamnosus 10,000 MMU CELLS/CAPSULE NG SCH (07:22)
[2019-02-11] MEDS: carvedilol 6.25mg tablet PO SCH (07:22)
[2019-02-11] MEDS: lisinopril 20mg tablet PO SCH (07:22)
[2019-02-11] MEDS: ESOMEPRAZOLE 40 MG VIAL IV SCH (07:22)
[2019-02-11] MEDS: levoTHYROXINE 175mcg tablet NG SCH (07:22)
[2019-02-11] MEDS: furosemide 40mg tablet PO SCH (07:22)
[2019-02-11] MEDS: K, MAG and/or Phos replacement - Verify level? MC SCH (07:23)
[2019-02-11 11:00] VITALS: BP 151/80
--- NOTE | 2019-02-11 14:20 | NUR ---
Pt left with daughter. PICC d/c'd, tele removed, all belongings sent home with pt.
[2019-02-11] MEDS ORDERED: pantoprazole 40mg Tablet.DR PO SCH (20:00)
== END 2019-02-11 14:31 | disposition home or self-care (01) | DRG 870 ==
LOC: CICU 2S 01-29 00:45 → PCU 3S 02-07 16:10
PROVIDERS: ADMIT Internal Medicine Critical Care Medicine; ATTEND Internal Medicine Critical Care Medicine
PROC: 5A1955Z Respiratory Ventilation, Greater than 96 Consecutive Hours (ICD-10-PCS; principal; 2019-01-29)
PROC: 02HV33Z Insertion of Infusion Device into Superior Vena Cava, Percutaneous Approach (ICD-10-PCS; 2019-01-29)
PROC: 4A02X4A Measurement of Cardiac Electrical Activity, Guidance, External Approach (ICD-10-PCS; 2019-01-29)
PROC: B548ZZA Ultrasonography of Superior Vena Cava, Guidance (ICD-10-PCS; 2019-01-29)
PROC: 0DJ08ZZ Inspection of Upper Intestinal Tract, Via Natural or Artificial Opening Endoscopic (ICD-10-PCS; 2019-01-31)
PROC: 0W9B3ZX Drainage of Left Pleural Cavity, Percutaneous Approach, Diagnostic (ICD-10-PCS; 2019-02-04)
PROC: 5A09357 Assistance with Respiratory Ventilation, Less than 24 Consecutive Hours, Continuous Positive Airway Pressure (ICD-10-PCS; 2019-02-06)
PROC: 5A09357 Assistance with Respiratory Ventilation, Less than 24 Consecutive Hours, Continuous Positive Airway Pressure (ICD-10-PCS; 2019-02-07)
DX: A41.9 Sepsis, unspecified organism (principal); J15.212 Pneumonia due to Methicillin resistant Staphylococcus aureus; R65.21 Severe sepsis with septic shock; J96.20 Acute and chronic respiratory failure, unspecified whether with hypoxia or hypercapnia; K72.00 Acute and subacute hepatic failure without coma; J91.8 Pleural effusion in other conditions classified elsewhere; N17.9 Acute kidney failure, unspecified; J44.0 Chronic obstructive pulmonary disease with (acute) lower respiratory infection; K92.1 Melena; K29.70 Gastritis, unspecified, without bleeding; K29.80 Duodenitis without bleeding; T50.1X5A Adverse effect of loop [high-ceiling] diuretics, initial encounter; K81.9 Cholecystitis, unspecified; F31.9 Bipolar disorder, unspecified; F43.10 Post-traumatic stress disorder, unspecified; I10 Essential (primary) hypertension; R94.5 Abnormal results of liver function studies; E87.6 Hypokalemia; Y92.89 Other specified places as the place of occurrence of the external cause
CPT/HCPCS: 32555; 36415; 36569; 36600; 43235; 71045; 71260; 74177; 76700; 76937; 80053; 80202; 82140; 82150; 82247; 82248; 82272; 82550; 82803; 82810; 82948; 83605; 83615; 83690; 83735; 83986; 84100; 84132; 84134; 84443; 85018; 85025; 85610; 85730; 87070; 87077; 87081; 87186; 93306; 94002; 94003; 94660; 94760; 97116; 97162; 97530; C9113; G0378; J1940; J2060; J2250; J2543; J2704; J2805; J3010; J3370; J3475; J3480; J7040; J7060; Q9963; Q9967